=== PATIENT | male | born 1975 | race Caucasian/White ===

== ENCOUNTER 2021-02-23 20:47 | Emergency (ER) | payer OTHER ==
[2021-02-23] MEDS ORDERED: TORADOL 10 MG T10 MG PO (23:36)
== END 2021-02-24 | disposition home or self-care (01) ==
LOC: ER1 20:47
DX: M25.511 Pain in right shoulder (principal); F17.200 Nicotine dependence, unspecified, uncomplicated; Z96.611 Presence of right artificial shoulder joint; Z79.899 Other long term (current) drug therapy
CPT/HCPCS: 73030; 96372; 99283; J1885

== ENCOUNTER → 2021-04-08 | Outpatient (CLI) | payer OTHER ==
[~2021-04-08] MED LIST: TORADOL 10 MG T10 MG PO
== END ==
LOC: US 13:08
DX: M79.601 Pain in right arm (principal); M79.89 Other specified soft tissue disorders; R23.8 Other skin changes
CPT/HCPCS: 93971

== ENCOUNTER 2021-04-09 21:42 | Emergency (ER) | payer OTHER | END 2021-04-10 00:10 | disposition home or self-care (01) | LOC: ER1 21:42 | DX: L02.413 Cutaneous abscess of right upper limb (principal); L03.113 Cellulitis of right upper limb; F17.200 Nicotine dependence, unspecified, uncomplicated | CPT/HCPCS: 73030; 99283 ==

== ENCOUNTER 2021-06-25 00:18 | Emergency (ER) | payer OTHER ==
[2021-06-25 01:37] LABS: HEMOGLOBIN 12.1 gm/dl (14.0-17.5); RED BLOOD COUNT 4.39 M/UL (4.20-5.50); WHITE BLOOD COUNT 19.6 K/UL (4.5-11.0)
== END 2021-06-25 02:30 | disposition home or self-care (01) ==
LOC: ER1 00:18
PROVIDERS: Emergency Medicine
DX: M96.830 Postprocedural hemorrhage of a musculoskeletal structure following a musculoskeletal system procedure (principal); F17.210 Nicotine dependence, cigarettes, uncomplicated
CPT/HCPCS: 85025; 99283